=== PATIENT | male | born 1950 | race Caucasian/White ===

== ENCOUNTER → 2017-05-08 | Outpatient (CLI) | payer OTHER ==
[~2017-05-08] MED LIST: ACET1TAB84 PO; CLOP1TAB15 PO; COEN1CAP7 PO; LISI40TA PO; METO25TA3 PO; MULT-506 PO; OMEGCAP2 PO; PRAV20TA PO
== END | disposition home or self-care (01) ==
LOC: C.LAB 18:27
DX: Z02.83 Encounter for blood-alcohol and blood-drug test (principal)